=== PATIENT | male | born 1995 | race Caucasian/White ===

== ENCOUNTER 2022-08-16 08:49 | Day surgery (SDC) | payer OTHER, SELFPAY ==
[2022-08-16] VITALS (11 sets, daily range): BP systolic 100–166; BP diastolic 57–115; PULSE 56–93; RESP 16–24; TEMP 36.4–37; O2SAT 77–100; BMI 29.7
--- NOTE | 2022-08-16 09:04 | ED.GENADUL_ITS ---
Discharge Plan Disposition Patient Disposition: Admit to [facility] Condition: Stable Discharge Details Clinical Impression: Acute appendicitis Attending Provider: Cedrick Munguia Primary Care Provider: None,None ED Provider: Dee Rivers Discharge Data Discharge Date/Time-TO BE ENTERED AT DEPARTURE: 08/16/22 14:47 Medical Decision Making 27-year-old male presents to the ER with chief complaint of right lower quadrant abdominal pain which began yesterday. Associate with nausea vomiting. Work-up ordered including CT abdomen pelvis, I did offer her pain medication which patient declined at this time. A liter of normal saline and Zofran ordered. Differential diagnosis includes but not limited to gastroenteritis, UTI, kidney stone, appendicitis, small bowel obstruction. Patient was ill in CT and had episode of vomiting. An additional 4 mg of Zofran ordered. CBC shows white blood cell count of 10.82, absolute neutrophil 7.95 sodium 135 potassium 3.8, BUN/creatinine within normal limits, alk phos 144 lipase 14 which is low. 1030: Spoke with Dr. Trevino radiologist to reports appendicitis on the CT findings. Discussed this with patient who verbalized understanding. Patient has been n.p.o. since yesterday. Surgery paged. 1120: Spoke with Dr. Rodriguez who is on-call for general surgery regarding patient case and details he verbalized understanding. 1133: Dr. Munguia at for Patient eval. Patient to be transferred to the OR. Dr. Munguia is requesting Zosyn and heparin 5000 units subcu which was ordered. This text was generated using [employer] dictation system, please disregard any oddities of phrase or misspellings. Medical Records Medical records reviewed: Yes I reviewed the patient's medical records. Lab Data Lab results reviewed: Yes I reviewed the patient's lab results. Labs: Laboratory Tests Range/Units 08/16/22 08/16/22 08/16/22 09:00 09:00 12:10 WBC (4.4-10.8) 10^3/uL 10.82 H RBC (4.36-5.78) 10^6/uL 5.23 Hgb (13.5-17.5) g/dL 16.7 Hct (40.0-50.0) % 46.2 MCV (80-95) fL 88 MCH (27.0-33.0) pg 31.9 MCHC (32.0-36.0) % 36.1 H RDW (11.8-14.1) % 11.9 Plt Count (130-400) 10^3/uL 223 MPV (8.0-11.0) fL 10.1 Immature Gran % 0.3 Neutrophils % 73.5 Lymphocytes % 19.5 Monocytes % 6.1 Eosinophils % 0.4 Basophils % 0.2 Nucleated RBC % (0.0-0.3) % 0.0 Absolute Neutrophils (1.2-6.7) 10^3/uL 7.95 H Absolute Lymphocytes (1.2-3.4) 10^3/uL 2.11 Absolute Monocytes (0.1-0.8) 10^3/uL 0.66 Absolute Eosinophils (0.0-0.7) 10^3/uL 0.04 Absolute Basophils (0.0-0.2) 10^3/uL 0.02 Sodium (136-145) mmol/L 135 L Potassium (3.5-5.1) mmol/L 3.8 Chloride (98-107) mmol/L 99 Carbon Dioxide (21.0-32.0) mmol/L 27.6 Anion Gap (3-11) mmol/L 8.4 BUN (7-18) mg/dL 15 Creatinine (0.70-1.30) mg/dL 1.2 Est GFR (CKD-EPI 2020) (mL/min/1.73m2) 83.95 Glucose (74-106) mg/dL 88 Calcium (8.5-10.1) mg/dL 9.2 Magnesium (1.8-2.4) mg/dL 2.2 Total Bilirubin (0.2-1.0) mg/dL 0.7 AST (15-37) U/L 22 ALT (16-63) U/L 35 Alkaline Phosphatase (46-116) U/L 144 H Total Protein (6.4-8.2) g/dL 8.4 H Albumin (3.4-5.0) g/dL 4.3 Lipase (16-77) U/L 14 L COVID-19 Source Nasal/Nares SARS-CoV-2 (PCR) (Negative) Negative HPI General Mode of arrival: ambulatory . Date/Time Provider Initiated Documentation: 08/16/22 08:51 . Limitations to Documentation: no limitations . Information obtained by: patient, RN notes reviewed and old records reviewed . HPI Narrative: 27-year-old male presents to the ER with a chief complaint of right lower quadrant abdominal pain which began yesterday. Associated with nausea vomiting. Denies any fever chills dysuria. Is pinpoint in the right lower quadrant. No history of abdominal surgeries. He is a smoker. Occasional alcohol denies any illicit drugs. No other associated symptoms. He did take ibuprofen this morning. Related Data Home Medications Medication Instructions Recorded Confirmed hydromorphone 2 mg tablet 2 mg PO Q8H PRN post-op pain 2 08/16/22 (Dilaudid) days #9 tabs Previous Rx's Medication Instructions Recorded hydromorphone 2 mg tablet 2 mg PO Q8H PRN post-op pain 2 08/16/22 (Dilaudid) days #9 tabs Allergies Allergy/AdvReac Type Severity Reaction Status Date / Time No Known Allergies Allergy Unverified 08/16/22 08:59 General Stated Complaint: Abd Prob GINA: 3 Review of Systems All systems reviewed & are unremarkable except as noted in HPI and below Gastrointestinal Gastrointestinal: Reports abdominal pain, Reports nausea and Reports vomiting PFSH All Active Problems (Updated 08/16/22 @ 11:24 by Dee Rivers NP) Acute appendicitis (Acute) Social History Smoking/Tobacco Use Status: Current every day Tobacco Type: cigarettes Smoking risk assessment performed?: Yes Alcohol Intake: current Alcohol Intake frequency: a few times a week Drug use: Never Substance use type: does not use Do you feel safe at home: Yes Do you feel safe in your relationship?: Yes Exam Narrative Exam Narrative: Constitutional: Alert and oriented x3. Appears stated age. Normal body habitus. Head: Normocephalic, no trauma. Eyes: Pupils PERRL, Red reflex noted, EOM's intact. Eyelids symmetrical without lesions, discharge, or swelling. ENT: Bilateral TM's WNL, External ear normal to inspection, no mastoid TTP, swelling, or erythema, Nasal turbinates WNL, no nasal discharge. Normal dentition, Posterior pharynx WNL, no exudate. Chest: RRR, Normal S1, S2, distal pulses intact. Resp: Lungs clear to auscultation bilaterally, no wheezes, rales, or rhonchi. Abdomen: Soft, non-distended, Normoactive bowel sounds all 4 quads. Right lower quadrant abdominal pain with palpation. Musculoskeletal: Normal gait, 5/5 strength to all four extremities. Skin: No suspicious rashes or lesions. Capillary refill less than 2 sec. Neurologic: Cranial nerves II-XII intact. Alert and oriented x 3. Motor: No deficits noted. Sensory: Intact bilaterally all 4 extremities. Hematologic/Lymphatic: No ecchymosis, no lymphadenopathy. Course Vital Signs Vital signs: Vital Signs Pulse 93 H 08/16/22 08:56 Blood Pressure 119/84 08/16/22 08:56 Pulse Oximetry 97 08/16/22 08:56 Pulse 93 H 08/16/22 08:56 Respiratory Effort Normal, Non-Labored 08/16/22 08:58 Blood Pressure 119/84 08/16/22 08:56 Blood Pressure Position Sitting 08/16/22 08:56 Pulse Oximetry 97 08/16/22 08:56 Oxygen Delivery Method Room Air 08/16/22 08:56 Oxygen Flow Rate 0 08/16/22 08:56 PAWSS Have you Been Recently Intoxicated or Drunk Within the Last 30 days?: No Have you Ever Experienced Previous Episodes of Alcohol Withdrawal?: No Have you ever Experienced Withdrawal Seizures?: No Have you ever Experienced Delirium Tremens(DT)s?: No Have you ever undergone Alcohol Rehabilitation Treatment (i.e, inpt ot outpatient treatment programs)?: No Have you ever Experienced Blackouts?: No Have you ever Combined Alcohol with other Downers within the last 90 days?: No Have you ever Combined Alcohol with any other Substance of Abuse during the last 90 days?: No Positive Blood Alcohol level on Presentation? [PCS.BAL]: No Evidence of Increased Autonomic Activity (i.e. HR>120, tremor, sweating, agitation, nausea)?: No Result: 0
--- NOTE | 2022-08-16 09:09 | DI.CT_ITS ---
Exam(s) CT ABDOMEN PELVIS W EXAM: CT ABDOMEN PELVIS W CLINICAL HISTORY: RLQ abd Pain. TECHNIQUE: Imaging Protocol: Axial computed tomography images with coronal and sagittal reformatted images were created and reviewed CONTRAST MATERIAL: Intravenous: Omnipaque 350 Contrast volume:123 ml Oral: no COMPARISON: No exams were available for comparison FINDINGS: Exam limited by the patient motion. Scan repeated. ABDOMEN: Lung Bases: Normal where visualized. Liver: Normal density. No measurable mass. Gallbladder and biliary tract: No radiodense calculus or dilation. Pancreas: Normal density, no abnormal calcifications or inflammatory process. Spleen: Normal. Kidneys: Normal size, contour and axis. No radiodense stones or obstructive uropathy. No suspicious m asses seen. Adrenal glands: No masses seen. Abdominal Aorta: Abdominal portion non-dilated. Soft tissues: Unremarkable. PELVIS: Bladder: No gross wall thickening. No calculi.No focal mass. Bowel: No obstruction. No bowel wall thickening. Appendix dilated, projecting inferior to the appen clarke. Mild surrounding stranding. Adjacent mildly enlarged right lower quadrant lymph nodes. Peritoneal cavity: No ascites, no collection. Bones: Within normal limits for age. Reproductive organs: Within normal limits. Impression: Findings consistent with appendicitis. Findings called to Dee Rivas emergency department provider. RADIATION DOSE DELIVERED: 1,413.58mGy.cm Total DLP DATA REPOSITORY: All CT scans at this facility are submitted to the National Radiology Data Registry (NRDR) Dose Index Registry (DIR) with the [employer] (ACR). RADIATION OPTIMIZATION: All CT scans at this facility use at least one of these dose optimization te chniques: automated exposure control; mA and/or kV adjustment per patient size (includes targeted exa ms where dose is matched to clinical indication); or iterative reconstruction.
[2022-08-16 09:17] LABS: Abs Immature Grans 0.03 10^3/uL (0.0-0.06); Absolute Basophil Count 0.02 10^3/uL (0.0-0.2); Absolute Eosinophil Count 0.04 10^3/uL (0.0-0.7); Absolute Lymphocyte Count 2.11 10^3/uL (1.2-3.4); Absolute Monocyte Count 0.66 10^3/uL (0.1-0.8); Basophils % 0.2; Eosinophils % 0.4; HCT 46.2 % (40.0-50.0); HGB 16.7 g/dL (13.5-17.5); Immature Grans % 0.3; Lymphocytes % 19.5; MCH 31.9 pg (27.0-33.0); MCHC 36.1 % (32.0-36.0); MCV 88 fL (80-95); MPV 10.1 fL (8.0-11.0); Monocytes % 6.1; Neutrophils % 73.5; Platelet Count 223 10^3/uL (130-400); RBC 5.23 10^6/uL (4.36-5.78); RDW 11.9 % (11.8-14.1); RDW-SD 38.8 fL; WBC 10.82 10^3/uL (4.4-10.8)
[2022-08-16 09:22] LABS: Absolute Neutrophil Count 7.95 10^3/uL (1.2-6.7)
[2022-08-16] MEDS: ACETAMINOPHEN 1,000 MG/100 ML BTL 400 MG IVPB (09:31)
[2022-08-16 09:39] LABS: ALT 35 U/L (16-63); AST 22 U/L (15-37); Albumin 4.3 g/dL (3.4-5.0); Alkaline Phosphatase 144 U/L (46-116); Anion Gap 8.4 mmol/L (3-11); BUN 15 mg/dL (7-18); Bilirubin, Total 0.7 mg/dL (0.2-1.0); CO2 27.6 mmol/L (21.0-32.0); CREATININE 1.2 mg/dL (0.70-1.30); Calcium 9.2 mg/dL (8.5-10.1); Chloride 99 mmol/L (98-107); Estimated GFR 83.95 (mL/min/1.73m2); Glucose 88 mg/dL (74-106); Lipase 14 U/L (16-77); Magnesium 2.2 mg/dL (1.8-2.4); Potassium 3.8 mmol/L (3.5-5.1); Sodium 135 mmol/L (136-145); Total Protein 8.4 g/dL (6.4-8.2)
[2022-08-16] MEDS: Ondansetron 4 MG/2 ML VIAL IVP (09:40)
[2022-08-16] MEDS: Normal Saline 1,000 ML 1000 ML IV (09:40)
[2022-08-16] MEDS: Omnipaque 350 MG/ML 500 ML BTL-Imaging package IJ (09:53)
[2022-08-16] MEDS: Normal Saline Flush 10 ML SYR IVP (09:54)
[2022-08-16] MEDS: Normal Saline - Diluent 50 ML VIAL IJ (09:55)
--- NOTE | 2022-08-16 11:19 | W.SURGCON ---
Date of service: 08/16/22 Time of Service: 12:09 Assessment and Plan Assessment and plan (1) Acute appendicitis: Status: Acute Assessment and plan: 27-year-old man with right lower quadrant abdominal pain for about 24 hours that clinically sounds suspicious for acute appendicitis and CT scan findings do show radiographic signs of acute appendicitis. He is hemodynamically stable and in no distress. The differential diagnosis is relatively broad but certainly acute appendicitis is the highest on the list of likelihood but the differential does include other etiologies such as Meckel's diverticulitis, terminal ileitis, viral gastroenteritis causing reactive lymphadenopathy in the mesentery amongst other less?common conditions. I have reviewed his CT scan images myself: There is no free air and no obvious free fluid. There is a little bit of motion artifact but the appendix is readily identifiable in the right lower quadrant and appears thickened and dilated with a little bit of fat stranding around it. There is no fluid collection around it or evidence of a phlegmon to suggest perforation. Overall plan: I recommend proceeding with laparoscopic appendectomy. We did discuss the possible treatment options and while some people favor nonoperative management with antibiotics, it is not my practice to recommend this considering the reality that a percentage of post-appendectomy pathology shows incidental carcinoma as the underlying culprit. Patient has considered the indications, benefits as well as potential complications of laparoscopic appendectomy and wishes to proceed. #IV antibiotics #DVT prophylaxis #Laparoscopic appendectomy #Anticipate discharge home afterwards as long as it is not found to be non- perforated History of Present Illness Narrative: The patient is a healthy 27-year-old man who was in his usual state of health and yesterday developed spontaneous and progressive abdominal discomfort in the lower abdomen beneath his bellybutton and over on the right side. This has slowly progressed and worsened and is constant pain at this point although the pain is just a severe discomfort. He has never had pain like this before. He has not eaten anything unusual or strange and has had no sick contacts recently. 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 He has never had intra-abdominal surgery. He does not have any medical problems. Because the pain was not going away and was slowly worsening he came to the emergency department to be evaluated. A CT scan performed by the ED was read to have findings radiographically consistent with acute appendicitis. At the bedside he continues to state that constant and persistent discomfort is the biggest issue. Its not moving anywhere and staying in the same spot. There is no family history of bleeding or blood clots. PFSH All Active Problems (Updated 08/16/22 @ 11:24 by Dee Rivers NP) Acute appendicitis (Acute) Social History Smoking/Tobacco Use Status: Current every day Tobacco Type: cigarettes Smoking risk assessment performed?: Yes Alcohol Intake: current Alcohol Intake frequency: a few times a week Drug use: Never Substance use type: does not use Do you feel safe at home: Yes Do you feel safe in your relationship?: Yes Exam Narrative Exam Narrative: General: Nontoxic, appears mildly uncomfortable interactive Neuro: Alert and oriented x3 Psych: Appropriate mood and affect, good insight and understanding into his condition Abdomen: Soft, nondistended, there is focal right lower quadrant McBurney?point tenderness. This is tap?tenderness consistent with focal peritonitis. The other 3 quadrants are soft and nontender. Results Last Vital Signs Pulse 93 H 08/16/22 08:56 BP 119/84 08/16/22 08:56 Pulse Ox 97 08/16/22 08:56 Labs 08/16/22 09:00 08/16/22 09:00 Labs: Laboratory Results - last 24 hr 08/16/22 08/16/22 09:00 09:00 WBC 10.82 H RBC 5.23 Hgb 16.7 Hct 46.2 MCV 88 MCH 31.9 MCHC 36.1 H RDW 11.9 Plt Count 223 MPV 10.1 Immature Gran % 0.3 Neutrophils % 73.5 Lymphocytes % 19.5 Monocytes % 6.1 Eosinophils % 0.4 Basophils % 0.2 Nucleated RBC % 0.0 Absolute Neutrophils 7.95 H Absolute Lymphocytes 2.11 Absolute Monocytes 0.66 Absolute Eosinophils 0.04 Absolute Basophils 0.02 Sodium 135 L Potassium 3.8 Chloride 99 Carbon Dioxide 27.6 Anion Gap 8.4 BUN 15 Creatinine 1.2 Est GFR (CKD-EPI 2020) 83.95 Glucose 88 Calcium 9.2 Magnesium 2.2 Total Bilirubin 0.7 AST 22 ALT 35 Alkaline Phosphatase 144 H Total Protein 8.4 H Albumin 4.3 Lipase 14 L
--- NOTE | 2022-08-16 11:49 | W.ANESPRE ---
General Info Date of Service Date Performed: 08/16/22 Height: 5 ft 7 in Weight: 86.183 kg Body Mass Index (BMI): 29.7 Surgical Procedure: Operation Date: 08/16/22 13:25 Proposed Procedure Side Surgeon p Appendectomy Laparoscopic Cedrick Munguia MD Meds Allergies and Home Medications Allergies Allergy/AdvReac Type Severity Reaction Status Date / Time No Known Allergies Allergy Unverified 08/16/22 08:59 Home Medication Medication Instructions Recorded Unknown [No Known Home Meds] 08/16/22 Current Visit Medications: Current Medications Generic Name Dose Route Start Last Admin Trade Name Freq PRN Reason Stop Dose Admin Sodium Chloride 500 mls @ 0 mls/hr 08/16/22 09:04 Saline 500ml Bag IV PRN PRN As Directed Piperacillin Sod/Tazobactam 100 mls @ 200 mls/hr 08/16/22 11:35 Sod 4.5 gm/ Sodium Chloride IVPB 08/16/22 12:04 NOW ONE Protocol IV Miscellaneous Supplies 1 each 08/16/22 09:15 Iv Access IV DIRECTED RENÉE Iohexol 500 ml 08/16/22 10:00 08/16/22 09:53 Omnipaque 350 Mg/Ml 500 Ml Btl-Imaging Package IJ 09/15/22 23:59 123 ml DIRECTED RENÉE Administration Sodium Chloride 0 ml 08/16/22 09:04 08/16/22 09:54 Normal Saline Flush 10 Ml Syr IVP 10 ml PRN PRN Administration Sodium Chloride 50 ml 08/16/22 10:00 08/16/22 09:55 Normal Saline - Diluent 50 Ml Vial IJ 50 ml .FOR DI USE RENÉE Administration [facility] Active Problems Active Problems: Problem Status Onset Code Acute appendicitis K35.80 Tobacco Smoking/Tobacco Use Status: Current every day Tobacco Type: cigarettes Alcohol Alcohol Intake: current Alcohol intake frequency: a few times a week Substance Use Substance use: Never Substance use type: does not use Vital Signs and Lab Results Vital Signs Most Recent Vital Signs in EMR: Most Recent Vital Signs Pulse BP Pulse Ox 93 H 119/84 97 08/16/22 08:56 08/16/22 08:56 08/16/22 08:56 Lab Results 08/16/22 09:00 08/16/22 09:00 Blood Type / Crossmatch: No Data to Display Complete Blood Count: White Blood Count 10.82 10^3/uL (4.4-10.8) H 08/16/22 09:00 Red Blood Count 5.23 10^6/uL (4.36-5.78) 08/16/22 09:00 Hemoglobin 16.7 g/dL (13.5-17.5) 08/16/22 09:00 Hematocrit 46.2 % (40.0-50.0) 08/16/22 09:00 Platelet Count 223 10^3/uL (130-400) 08/16/22 09:00 Complete Metabolic Panel: Sodium 135 mmol/L (136-145) L 08/16/22 09:00 Potassium 3.8 mmol/L (3.5-5.1) 08/16/22 09:00 Chloride 99 mmol/L (98-107) 08/16/22 09:00 Carbon Dioxide 27.6 mmol/L (21.0-32.0) 08/16/22 09:00 BUN 15 mg/dL (7-18) 08/16/22 09:00 Creatinine 1.2 mg/dL (0.70-1.30) 08/16/22 09:00 Est GFR (CKD-EPI 2020) 83.95 (mL/min/1.73m2) 08/16/22 09:00 Magnesium 2.2 mg/dL (1.8-2.4) 08/16/22 09:00 Calcium 9.2 mg/dL (8.5-10.1) 08/16/22 09:00 Albumin 4.3 g/dL (3.4-5.0) 08/16/22 09:00 Glucose 88 mg/dL (74-106) 08/16/22 09:00 Liver Function Panel: Alanine Aminotransferase (ALT/SGPT) 35 U/L (16-63) 08/16/22 09:00 Aspartate Amino Transf (AST/SGOT) 22 U/L (15-37) 08/16/22 09:00 Coagulation Panel: No Data to Display Cardiac Panel: No Data to Display Arterial Blood Gas: No Data to Display Venous Blood Gas: No Data to Display Pancreas Panel: Lipase 14 U/L (16-77) L 08/16/22 09:00 Thyroid Panel: No Data to Display Infectious Disease: Coronavirus (COVID-19)(PCR) Pending 08/16/22 12:10 Coronavirus 2019 Source Nasal/Nares 08/16/22 12:10 Blood Cultures: No Data to Display Toxicology Panel: No Data to Display Anesthesia Assessment and Plan Anesthesia History Personal History: No History of Anesthesia Complications Family History: No Family History of Anesthesia Complications Exercise Tolerance Exercise Tolerance: Metabolic Equivalents>4 Pertinent Negatives Pertinent Negatives: No Major Cardiovascular Symptoms or Complaints, No Major Pulmonary Symptoms or Complaints and No History of CVA/TIA Cardiac & Pulmonary Exam Cardiac Exam: Normal S1/S2 Heart Sounds Pulmonary Exam: Clear Bilateral Breath Sounds Implantable Cardiac Device Does patient have a Pacemaker or an ICD?: No Airway Exam Known Difficult Airway: No Mallampati Class: 1 Mouth Opening: Normal (> 3cm) Thyromental Distance: Greater than 3 cm Facial Hair: Full [place] Neck Range of Motion: Full ROM Neck Circumference: Normal Teeth Condition: Normal Dentition ASA Classification ASA Score: ASA 2 Emergency Case?: Yes NPO Status NPO Status: NPO Clears >2 hours, Solids >8 hours Anesthesia Plan Resuscitation Status: Full Code Anesthesia Technique: General Anesthesia Airway Planned: Endotracheal Tube Monitors Used: Standard Monitors
[2022-08-16] MEDS: PIPERACILLIN/TAZO 4.5 GM in Normal Saline 100 ML IVPB (11:53)
[2022-08-16] MEDS: Heparin 5,000 UNITS/ML VIAL 5000 UNITS SC (11:53)
[2022-08-16] MEDS: Metoclopramide 10 MG/2 ML VIAL (12:00)
--- NOTE | 2022-08-16 12:00 | NUR.NOTE ---
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
[2022-08-16 12:12] LABS: Source Nasal/Nares
[2022-08-16] MEDS: Lactated Ringers 1,000 ML 1000 ML IV (12:40)
--- NOTE | 2022-08-16 13:15 | APP_PTH ---
PATIENT: Jose L Looney LOC: [facility] U#:[id number] AGE/SX: 27/M ROOM: RE08/16/[address]: Cedrick Munguia : 1995 BED: DIS: 08/16/2022 SPEC #: [id number] RECD: 08/16/22 17:41 STATUS: KUNAL REQ #: [id number] NICOLÁS: 08/16/22 13:[address]: Cedrick Munguia DEPT: Surgical Specimen RECD BY: Soraya Rodríguez ENTERED: 08/16/22 17:41 SP TYPE: Appendix OTHR DR: None Tissues: 1 - APPENDIX NOT INCIDENTAL Procedures: GROSS AND MICRO LEVEL 3 Comments: [id number]
[2022-08-16] MEDS: Bupivacaine 0.25% Pres-Free 30 ML VIAL (13:20)
[2022-08-16 13:26] LABS: COVID-19 PCR Negative (Negative)
--- NOTE | 2022-08-16 13:34 | ROE_ITS ---
Date of service: 08/16/22 Time of Service: 13:35 Operative Note Operative Note Refer to Anesthesia Record Procedure Description: Procedures performed: 1. Laparoscopic appendectomy ?Preoperative diagnosis: Acute appendicitis ?Postop diagnosis: Acute appendicitis ?Surgeon: Mckinley Munguia Aluminum Molding Machine Operator: None ?Anesthesia: General ?Anesthesia provider: Mireya ?Indication for procedure: 27 yo man with acute onset RLQ pain and CT findings consistent with acute, non-perforated appendicitis. ?Findings:? An acutely inflamed appendix was encountered.? No purulence or abscess and no wide-spread contamination. ?Estimated blood loss: Scant/Minimal ?Complications: No complications ?Drains: None ?Procedure details: The patient gave written consent, was in agreement with the risks, indications and benefits of the procedure and was taken to the operating room and laid supine with arms outstretched.? Anesthesia was administered which was tolerated very well.? We tucked the left arm.? Antibiotics and DVT prophylaxis had been given.? We performed a timeout and when we were all in agreement I began the case. We prepped and draped the abdomen in sterile fashion.? I used a Veress needle at Potter's point and insufflated without any difficulty.? A 5 mm port was placed thru the umbilicus without any difficulty. I had adequate exposure and visualization of the RLQ with the above-mentioned findings.? I placed two other trocars under direct visualization. There was no evidence of perforation and the distal third of the appendix was inspected and inflamed and firm. There was scant reactive free fluid nearby. Using the Ligasure I divided the mesoappendix.? Next I divided the appendix base with the stapler ensuring a healthy but small cuff of cecum was also taken as part of the staple line? I removed the appendix from the abdominal cavity and passed the specimen off the back table.? I rechecked for hemostasis and it was excellent.? The 12 mm port site was closed through the fascia with 0-Vicryl.? The remaining ports were removed.? Skin was closed with absorbable sutures and dressings were placed. The patient tolerated the procedure well and was extubated and taken to the PACU in HD stable condition.
[2022-08-16] MEDS: fentaNYL 100 MCG/2 ML VIAL IVP ×2 (14:00→14:15)
--- NOTE | 2022-08-16 14:29 | W.ANESPOSTOP ---
Postoperative Evaluation Date, Time and Location Date Performed: 08/16/22 Time Performed: 14:20 Patient Location: PACU Vital Signs Most Recent Imported Vital Signs: Most Recent Vital Signs Temp Pulse Resp BP Pulse Ox 36.6 C 62 16 108/80 100 08/16/22 14:15 08/16/22 14:15 08/16/22 14:15 08/16/22 14:15 08/16/22 14:15 Pain Score Most Recent Pain Score: Most Recent Pain Score Pain Level 4 08/16/22 14:15 Assessment Mental Status: Awake (Alert & Oriented to Patient Baseline) Airway and Respiratory Function: Patent airway with normal (patient baseline) respiratory exam Cardiovascular Function: Hemodynamically Stable Hydration Status: Adequately Hydrated Nausea & Vomiting: No Nausea or Vomiting Pain: Pain is tolerable per patient Peripheral Nerve Block: Patient did not receive a nerve block
[2022-08-16] MEDS: HYDROmorphone 2 MG TAB PO (15:24)
== END 2022-08-16 15:37 | disposition home or self-care (01) ==
LOC: ER 11:28 → DSU 12:40
PROVIDERS: Emergency Provider Registered Nurse Emergency; Visit Provider Student in an Organized Health Care Education/Training Program
PROC: 0DTJ4ZZ Resection of Appendix, Percutaneous Endoscopic Approach (ICD-10-PCS; CPT 44970; principal; 2022-08-16 13:15)
DX: K35.80 Unspecified acute appendicitis (principal); Z20.822 Contact with and (suspected) exposure to COVID-19
CPT/HCPCS: 44970; 36415; 80053; 83690; 87635; 96361; 96365; 96366; 96375; 99285; 74177; 83735; 85025; 88304; 99284; J0131; J1100; J1644; J1885; J2405; J2543; J2704; J2765; J3010

== ENCOUNTER 2023-06-19 09:52 | Emergency (ER) | payer OTHER, SELFPAY ==
[2023-06-19 09:56] VITALS: BP 126/93; PULSE 105; RESP 16; TEMP 36.7; O2SAT 98
--- NOTE | 2023-06-19 10:00 | DI.RAD_ITS ---
Exam(s) XR FOOT RT COMPLETE EXAM: XR FOOT RT COMPLETE CLINICAL HISTORY: foot injury. TECHNIQUE: 2D digital imaging was performed of the right foot. Three images were obtained. AP, obl ique and lateral views were obtained. COMPARISON: No exams were available for comparison FINDINGS: BONES: No acute fracture is present. No bony destructive lesion is seen. JOINTS: No dislocation present. SOFT TISSUE: Normal. IMPRESSION: Unremarkable radiographs of the right foot. DATA REPOSITORY: RADIATION DOSE DELIVERED:
--- NOTE | 2023-06-19 10:04 | ED.GENADUL_ITS ---
HPI General Date/Time Provider Initiated Documentation: 06/19/23 10:03 . Limitations to Documentation: no limitations . Information obtained by: patient . HPI Narrative: 28-year-old gentleman without significant past medical history presents for acute onset right foot pain. Onset yesterday. He was walking without shoes when he slipped and smashed his right toes. He reports that his toes curled backwards. He reports pain localized to the third and fourth toe. Worse with walking. Took Motrin prior to arrival. Related Data Home Medications Medication Instructions Recorded Confirmed Unknown [No Known Home Meds] 08/30/22 06/19/23 Allergies Allergy/AdvReac Type Severity Reaction Status Date / Time No Known Allergies Allergy Unverified 08/16/22 08:59 General Stated Complaint: Orthopedic GINA: 4 Exam Narrative Exam Narrative: Review of Systems: All systems reviewed & are unremarkable except as noted in HPI and below Well-developed, no acute distress NACT PERRL, normal conjunctiva RRR Unlabored respiratory effort Nondistended abdomen Right foot with bruising and swelling of the fourth toe, some tenderness of the third toe, no tenderness along the fifth metatarsal, no obvious deformity or open wound. Ankle normal, lower leg normal No rashes or lesions. no focal neurologic deficits Appropriate mood and affect Course Vital Signs Vital signs: Vital Signs Temperature 36.7 C 06/19/23 09:56 Pulse 105 H 06/19/23 09:56 Respiratory Rate 16 06/19/23 09:56 Blood Pressure 126/93 H 06/19/23 09:56 Pulse Oximetry 98 06/19/23 09:56 Temperature 36.7 C 06/19/23 09:56 Pulse 105 H 06/19/23 09:56 Respiratory Rate 16 06/19/23 09:56 Blood Pressure 126/93 H 06/19/23 09:56 Pulse Oximetry 98 06/19/23 09:56 Medical Decision Making Emergent evaluation of right foot pain. Initial differential includes contusion, fracture. Unlikely dislocation. The patient declines any additional pain medication at this time. Will get x-ray to evaluate for bony injury. 1030 x-ray reviewed and independently interpreted by me, no fracture. Yovany tape provided. Patient declines hard soled soled shoe. Treatment guidance provided. Discharged in good condition. Medical Records Medical records reviewed: Yes I reviewed the patient's medical records. Quality:[facility] Health Related Social Needs: No Data to Display PFSH All Active Problems (Updated 06/19/23 @ 10:31 by Felisha Rodriguez MD) Contusion of toe (Acute) Pain in toe (Acute) Acute appendicitis (Acute) Medical History Shoulder pain Insomnia Surgical History S/P laparoscopic appendectomy (~08/16/22) Social History Smoking/Tobacco Use Status: Current every day Tobacco Type: cigarettes Smoking risk assessment performed?: Yes Alcohol Intake: current Alcohol Intake frequency: a few times a week Drug use: Never Substance use type: does not use Current gender identity: male Do you feel safe at home: Yes Do you feel safe in your relationship?: Yes Discharge Plan Disposition Patient Disposition: Home Discharge Details Clinical Impression: Pain in toe, Contusion of toe Primary Care Provider: Unknown,Unknown ED Provider: Felisha Rodriguez Home Meds and New Rx's Prescriptions: No Action No Known Home Meds Discharge Instructions Instructions: Foot Contusion (ED) Additional Instructions: no break on the xray budding taping and wearing hard sole shoe will help with comfort
--- NOTE | 2023-06-19 10:26 | DI.VRAD_ITS ---
PROCEDURE INFORMATION: Exam: XR Right Foot Exam date and time: 06/19/2023 10:12 AM Age: 28 years old Clinical indication: Other: Right fourth toe injury TECHNIQUE: Imaging protocol: Radiologic exam of the right foot. Views: 3 or more views. COMPARISON: No relevant prior studies available. FINDINGS: Bones/joints: No acute fracture or dislocation. Bipartite lateral hallux sesamoid. Joint spaces are maintained. Soft tissues: No significant swelling. IMPRESSION: No radiographic evidence of acute osseous injury. Dictated and Authenticated by: Bernard Rabago MD. Ordering:SAURABH Martin MD
--- NOTE | 2023-06-19 10:33 | NUR.NOTE ---
Nursing Note: Pt refused post op natalie NAVARRO aware.
== END 2023-06-19 10:31 | disposition home or self-care (01) ==
PROVIDERS: Emergency Provider Emergency Medicine
DX: S90.121A Contusion of right lesser toe(s) without damage to nail, initial encounter (principal); F17.210 Nicotine dependence, cigarettes, uncomplicated; W22.8XXA Striking against or struck by other objects, initial encounter; Y93.01 Activity, walking, marching and hiking
CPT/HCPCS: 99283; 73630

== ENCOUNTER 2024-01-26 16:29 | Outpatient (CLI) | payer OTHER, SELFPAY ==
--- NOTE | 2024-01-26 16:15 | DI.RAD_ITS ---
Exam(s) XR LUMBAR SPINE COMPLETE EXAM: XR LUMBAR SPINE COMPLETE CLINICAL HISTORY: L-spine pain, evaluate pathology. TECHNIQUE: 2D digital imaging was performed. COMPARISON: No exams were available for comparison FINDINGS: Five views. No evidence of fracture, listhesis, nor obvious pars defects. No scoliosis. Facet joints appear unr emarkable. Disc spaces exhibit normal height at each level in the lumbar spine. Bone density normal . No osseous lesions. IMPRESSION: No significant osseous findings in the lumbosacral spinal column. DATA REPOSITORY: RADIATION DOSE DELIVERED:
--- NOTE | 2024-01-26 16:15 | DI.RAD_ITS ---
Exam(s) XR THORACIC SPINE COMPLETE EXAM: XR THORACIC SPINE COMPLETE CLINICAL HISTORY: T-spine pain, evaluate pathology. TECHNIQUE: 2D digital imaging was performed. COMPARISON: No exams were available for comparison FINDINGS: 3 views No evidence of fracture, listhesis, nor abnormal widening of the paraspinal lines. Bone density appe ars normal. No osseous lesions. No scoliosis. IMPRESSION: No significant radiographic findings on these views of the thoracic spinal column. DATA REPOSITORY: RADIATION DOSE DELIVERED:
--- NOTE | 2024-01-26 17:48 | DI.VRAD_ITS ---
PROCEDURE INFORMATION: Exam: XR Thoracic Spine Exam date and time: 01/26/2024 5:01 PM Age: 28 years old Clinical indication: Pain in thoracic spine TECHNIQUE: Imaging protocol: Radiologic exam of the thoracic spine. Views: 3 views. COMPARISON: CT ABDOMEN PELVIS W 08/16/2022 10:01 AM FINDINGS: Bones/joints: Normal. No acute fracture. Normal alignment. Soft tissues: Unremarkable. IMPRESSION: No acute findings. Dictated and Authenticated by: Bonnie Pandey MD. Ordering:MICHELLE Fernando MD
--- NOTE | 2024-01-26 17:50 | DI.VRAD_ITS ---
PROCEDURE INFORMATION: Exam: XR Lumbosacral Spine Exam date and time: 01/26/2024 5:02 PM Age: 28 years old Clinical indication: Low back pain TECHNIQUE: Imaging protocol: Radiologic exam of the lumbosacral spine. Views: 4 or 5 views. COMPARISON: CT ABDOMEN PELVIS W 08/16/2022 10:01 AM FINDINGS: Bones/joints: Normal. No acute fracture. Normal alignment. Soft tissues: Unremarkable. IMPRESSION: No acute findings. Dictated and Authenticated by: Bonnie Pandey MD. Ordering:MICHELLE Fernando MD
== END 2024-01-26 16:49 ==
PROVIDERS: Visit Provider Nurse Practitioner Family
DX: M54.50 Low back pain, unspecified (principal); M54.6 Pain in thoracic spine
CPT/HCPCS: 72072; 72110

== ENCOUNTER 2025-03-12 13:00 | Emergency (ER) | payer SELFPAY ==
[2025-03-12 13:02] VITALS: BP 137/90; PULSE 70; RESP 18; TEMP 36.6; O2SAT 98
--- NOTE | 2025-03-12 13:02 | ED.GENADUL_ITS ---
Discharge Plan Disposition Patient Disposition: Home Discharge Details Clinical Impression: Compression fx, lumbar spine Primary Care Provider: Unknown,Unknown ED Provider: Giuliano Wang Home Meds and New Rx's Prescriptions: New lidocaine [Lidoderm] 5 % adhesive patch,medicated 1 patch topical DAILY Qty: 15 0RF Rx Instructions: leave on most painful area for up to 12 hrs Discharge Instructions Additional Instructions: You were seen in the emergency department for your back pain. You were found to have an L4 lumbar spinal fracture. These are managed conservatively and generally do not require surgeries. Neurosurgery at [facility] has reviewed your films. They will help to arrange follow-up in 4 weeks. Please do not lift anything greater than 10 pounds. Please do not bend or twist. For your pain please take medications as follows: 1. Take acetaminophen (Tylenol), 1,000 mg (two 500 mg tabs) every 6 hours [2. Take ibuprofen (Advil), 400 mg every 6 hours.] You are also receiving several doses of stronger medications you should take as directed. Please not drink alcohol or drive after taking the stronger opiates. As we discussed please return to the emergency department if you develop any numbness or tingling between your legs, if you lose control of your bowel or bladder or if you have any other concern. Stand Alone Forms: Work Release HPI General Date/Time Provider Initiated Documentation: 03/12/25 13:02 . HPI Narrative: MDM Primary survey intact. Reassuring shock index. On secondary survey patient has paraspinal lower thoracic and lumbar tenderness. Given fall will obtain CT of thoracic and lumbar spine despite no midline tenderness at the moment. Equal breath sounds and no trauma to chest without pneumothorax. No head strike to suggest increased risk for intracranial hemorrhage. No foot tenderness to suggest calcaneal fracture. Patient has been ambulatory so doubt hip fracture. Bilateral lower extremities nontender. No saddle anesthesia nor any loss of bowel or bladder control to suggest spinal cord injury. In the absence of nausea, vomiting, and abdominal pain I am not suspicious for any intra-abdominal injury. Given no head strike my suspicion for intracranial hemorrhage is low so do not feel patient requires CT head. No midline cervical spinal tenderness to suggest benefit from 3:36 PM I spoke to Ronn Foster from [facility] at [facility]. He will help arrange outpt fu in 4 weeks. He advised we could offer the patient a brace as needed but this is not required. We discussed that patient should not lift anything greater than 10 pounds and he should not bend or twist until he is seen by neurosurgery in follow-up. I provided the patient with a work note. I advised scheduled ibuprofen and acetaminophen. I prescribed Lidoderm patches. I gave the patient a short course of to go oral morphine tablets. We discussed not drinking driving or operating any equipment after taking opiates. HPI This is a patient presenting with back pain following a fall. The patient experienced a fall from an 8-foot height while attempting to push a pipe over the roof, resulting in a loss of balance. The pain is located on the sides of his back and is described as stiffness. He reports no chest pain or neck discomfort prior to the incident. He also reports no pain in the middle of his back or along the spine. He is not experiencing any numbness or tingling sensations in his legs, although he has a history of a herniated disc that previously caused numbness in his buttocks, leg, and feet. Currently, he has regained sensation in his feet and reports no loss of bowel or bladder control. He also reports no unusual tingling between his legs. His mobility remains unaffected, with no reported leg pain and the ability to walk without difficulty. He did not lose consciousness during the fall and does not believe his head made contact with the ground. Exam General: Well-appearing in no acute distress speaking in complete sentences. Head: Normocephalic, atraumatic. Eye: Extraocular eye movements intact. No conjunctival injection. No scleral icterus. Ear, nose, mouth, throat: Grossly normal inspection. Normal voice, handling secretions normally. Neck: Trachea midline. No midline cervical spinal tenderness. Cardiovascular: Well-perfused distal extremities. Respiratory: Nonlabored respiration. Clear lungs bilaterally. Gastrointestinal: Nondistended abdomen. Musculoskeletal: No edema. Moving all 4 extremities spontaneously. Nontender bilateral upper lower extremities. Lower extremities: Sensation motor function intact bilateral lower extremities. Patient can fully flex and extend the legs. 5 out of 5 dorsi and plantarflexion strength bilaterally. Skin: Normal for age and race, grossly normal temperature and turgor. No acute rash. Neurologic: Alert and appropriate, no apparent acute deficits. GCS 15. Related Data Home Medications ?Medication ?Instructions ?Recorded ?Confirmed lidocaine 5 % topical patch 1 patch topical DAILY #15 ea 10/21/25 (Lidoderm) Previous Rx's ?Medication ?Instructions ?Recorded lidocaine 5 % topical patch 1 patch topical DAILY #15 ea 03/12/25 (Lidoderm) Allergies Allergy/AdvReac Type Severity Reaction Status Date / Time prednisone Allergy Other (See Verified 03/12/25 13:04 Comment) General GINA: 4 PFSH All Active Problems (Updated 03/12/25 @ 15:39 by Giuliano Wang MD) Compression fx, lumbar spine (Acute) Acute appendicitis (Acute) Medical History Shoulder pain Insomnia Surgical History S/P laparoscopic appendectomy (~08/16/22) Social History Smoking/Tobacco Use Status: Current every day Tobacco Type: cigarettes Smoking risk assessment performed?: Yes Alcohol Intake: never Drug use: Never Substance use type: does not use Current gender identity: male Do you feel safe at home: Yes Do you feel safe in your relationship?: Yes
--- NOTE | 2025-03-12 13:15 | DI.CT_ITS ---
Exam(s) CT THORACIC LUMBAR SPINE WO EXAM: CT THORACIC LUMBAR SPINE WO CLINICAL HISTORY: Back pain fall. TECHNIQUE: Imaging Protocol: Axial, coronal and sagittal images were reconstructed utilizing bone and soft tissue algorithm. COMPARISON: CR,XR XR THORACIC SPINE COMPLETE from 01/26/2024 CR,XR XR LUMBAR SPINE COMPLETE from 01/26/2024 FINDINGS: Thoracic spine: Bones: No acute fractures are seen. The alignment of the spine is normal including the cervicothoracic junction. Soft tissues: The soft tissues of the chest are unremarkable. No large disk herniations are identified. Lumbar spine: Bones: There is a fracture at the anterior superior endplate of L4 which is minimally depressed. There is also minimal displacement. There is no involvement of the posterior aspect of the vertebral body or posterior elements. No additional fractures are present. Degenerative disc changes and facet degenerative changes are present. Alignment: Normal. Soft tissues: There is no large disc herniation. No paraspinal hematoma. IMPRESSION: No acute abnormality of the thoracic spine. Mild fracture of the anterior superior endplate of L4. Findings called to the ER provider RADIATION DOSE DELIVERED: Total DLP DATA REPOSITORY: All CT scans at this facility are submitted to the National Radiology Data Registry (NRDR) Dose Index Registry (DIR) with the [employer] (ACR). RADIATION OPTIMIZATION: All CT scans at this facility use at least one of these dose optimization techniques: automated exposure control; mA and/or kV adjustment per patient size (includes targeted exams where dose is matched to clinical indication); or iterative reconstruction.
[2025-03-12] MEDS: Acetaminophen 500 MG TAB 1000 MG PO (13:30)
[2025-03-12] MEDS: Lidocaine 5% Patch 1 PATCH TP (13:31)
[2025-03-12] MEDS: Ibuprofen 600 MG TAB PO (13:31)
--- NOTE | 2025-03-12 14:40 | DI.RAD_ITS ---
Exam(s) XR LUMBAR SPINE AP, LAT EXAM: XR LUMBAR SPINE AP, LAT CLINICAL HISTORY: Lumbar spine fracture. TECHNIQUE: 2D digital imaging was performed. Three views. COMPARISON: CT CT THORACIC LUMBAR SPINE WO from 03/12/2025 FINDINGS: BONES: There is a nondisplaced and minimally depressed fracture of the left anterior superior endplate of L4 which is partially obscured by bowel gas. No additional fractures are identified. Vertebral body heights are maintained. No facet hypertrophy identified . DISKS: Intervertebral disc spaces are maintained. ALIGNMENT: Lumbar spinal alignment is within normal limits. SOFT TISSUE: Normal. IMPRESSION: Mild fracture of the anterior superior endplate of L4 as seen on prior CT. DATA REPOSITORY: RADIATION DOSE DELIVERED:
[2025-03-12 15:50] VITALS: BP 126/94; PULSE 66; TEMP 37.4; O2SAT 97
[2025-03-12] MEDS: MORPHine IR 15 MG TAB, 4 TABS/BTL PO (16:08)
== END 2025-03-12 16:18 | disposition home or self-care (01) ==
PROVIDERS: Emergency Provider Emergency Medicine
DX: S32.040A Wedge compression fracture of fourth lumbar vertebra, initial encounter for closed fracture (principal); W19.XXXA Unspecified fall, initial encounter
CPT/HCPCS: 99283; 99284; 72100; 72128; 72131

== ENCOUNTER 2025-03-15 05:43 | Emergency (ER) | payer SELFPAY ==
[2025-03-15] VITALS (10 sets, daily range): BP systolic 105–128; BP diastolic 58–101; PULSE 48–96; RESP 16–20; TEMP 36.4–37.1; O2SAT 97–99
--- NOTE | 2025-03-15 06:33 | ED.GENADUL_ITS ---
Discharge Plan Discharge Details Chief Complaint: Nk/Back Pain Clinical Impression: Closed lumbar vertebral fracture, Back pain Primary Care Provider: Unknown,Unknown ED Provider: Aye Sheehan Home Meds and New Rx's Prescriptions: No Action lidocaine [Lidoderm] 5 % adhesive patch,medicated 1 patch topical DAILY Qty: 15 0RF Rx Instructions: leave on most painful area for up to 12 hrs HPI General Mode of arrival: ambulatory . Date/Time Provider Initiated Documentation: 03/15/25 05:45 . Limitations to Documentation: no limitations . Information obtained by: patient and old records reviewed . HPI Narrative: 30yo M with fall with lumbar fracture on 03/12/25 presenting for worsening back pain. [facility] records reviewed and show anterior superior L4 endplate fracture with minimal displacement. Pain was initially adequately controlled wtih tylenol/ibuprofen/oral morphine at home, however yesterday evening and this morning has been much worse. 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 No numbness, tingling, weakness, bowel/bladder incontinence or difficutlies. Not able to see his PCP for another 3-5 days. He is otherwise in his usual state of health. Related Data Home Medications ?Medication ?Instructions ?Recorded ?Confirmed lidocaine 5 % topical patch 1 patch topical DAILY #15 ea 03/12/25 (Lidoderm) Previous Rx's ?Medication ?Instructions ?Recorded lidocaine 5 % topical patch 1 patch topical DAILY #15 ea 03/12/25 (Lidoderm) Allergies Allergy/AdvReac Type Severity Reaction Status Date / Time prednisone Allergy Other (See Verified 03/15/25 06:30 Comment) General Stated Complaint: Nk/Back Pain GINA: 3 Review of Systems Narrative: see HPI Exam Narrative Exam Narrative: General: Alert, well appearing, well nourished, appears to be in pain Head: Normocephalic, atraumatic Neck: Trachea midline, ?Neck supple. Cardiac: ?RRR Resp: No respiratory distress. Speaking in full sentences. Abd: ?Non-distended Back: Midline tenderness low lumbar spine. No paraspinal tenderness or spasm. Extremities: ?No deformities.? No peripheral edema. Neuro: ? GCS 15.? PERRL.? EOMI.? Fluent speech, no dysarthria. Motor- 5/5 strength symmetric bilateral lower extremities Sensation- ?Intact to light touch and symmetric multiple dermatomes bilateral lower extremities. No saddle anesthesia. Reflexes- 2/4 achilles & patellar, no clonus Gait/station: ?No truncal ataxia. Steady gait with equal steps Course Vital Signs Vital signs: Vital Signs Temperature 36.6 C 03/15/25 05:49 Pulse 80 03/15/25 05:49 Respiratory Rate 20 03/15/25 05:49 Temperature 36.6 C 03/15/25 05:49 Temperature Source Oral 03/15/25 05:49 Pulse 80 03/15/25 05:49 Respiratory Rate 20 03/15/25 05:49 Blood Pressure Position Sitting 03/15/25 05:49 Oxygen Delivery Method Room Air 03/15/25 05:49 Oxygen Flow Rate 0 03/15/25 05:49 Pain Level 7 03/15/25 06:22 Medical Decision Making 30yo M with fall with lumbar fracture on 03/12/25 presenting for worsening back pain. [facility] records reviewed and show anterior superior L4 endplate fracture with minimal displacement. Pain was initially adequately controlled wtih tylenol/ibuprofen/oral morphine at home, however yesterday evening and this morning has been much worse despite being complaint with his restrictions. Had tylenol, ibuprofen, and morphine around 0500. Vital signs reassuring on arrival, reassuring neuro exam, no deficits and he has no neuro symptoms to suggest cord injury. Will treat pain here with IM toradol, PO hydromorphone, lidocaine patch. Given worsening pain, will get repeat CT to evaluate. Will be signed out to oncoming physcian, plan to follouwp imaging and reassess. Disposition pending results and clincial course. PFSH All Active Problems (Updated 03/15/25 @ 06:42 by Aye Sheehan MD) Back pain (Acute) Closed lumbar vertebral fracture (Acute) Compression fx, lumbar spine (Acute) Acute appendicitis (Acute) Medical History Shoulder pain Insomnia Surgical History S/P laparoscopic appendectomy (~08/16/22) Social History Smoking/Tobacco Use Status: Current every day Tobacco Type: cigarettes Smoking risk assessment performed?: Yes Alcohol Intake: never Drug use: Never Substance use type: does not use Current gender identity: male Do you feel safe at home: Yes Do you feel safe in your relationship?: Yes
[2025-03-15] MEDS: HYDROmorphone 2 MG TAB PO (06:35)
[2025-03-15] MEDS: Ketorolac 15 MG/ML VIAL IVP (06:51)
[2025-03-15] MEDS: Lidocaine 5% Patch 1 PATCH TP (07:00)
--- NOTE | 2025-03-15 07:09 | DI.CT_ITS ---
Exam(s) CT LUMBAR SPINE WO EXAM: CT LUMBAR SPINE WO CLINICAL HISTORY: worsening pain s/p L4 endplate fx 03/12. TECHNIQUE: Imaging Protocol: Axial computed tomography images with coronal and sagittal reformatted images were created and reviewed COMPARISON: CT CT THORACIC LUMBAR SPINE WO from 03/12/2025 FINDINGS: Bones: The last intervertebral disc space is designated the L5/S1 level for the numbering purpose of this examination. Stable mildly displaced fracture is again noted at the anterosuperior endplate the L4 vertebral body. No new fractures. No gross evidence of disc herniation. The disc spaces are maintained. Alignment is satisfactory. Soft Tissues: The paraspinal soft tissues are unremarkable. IMPRESSION: Stable alignment of the fracture at the anterior superior endplate of L4. No new fractures. The preliminary [facility] report was reviewed. RADIATION DOSE DELIVERED: 601.69mGy.cm Total DLP DATA REPOSITORY: All CT scans at this facility are submitted to the National Radiology Data Registry (NRDR) Dose Index Registry (DIR) with the [employer] (ACR). RADIATION OPTIMIZATION: All CT scans at this facility use at least one of these dose optimization techniques: automated exposure control; mA and/or kV adjustment per patient size (includes targeted exams where dose is matched to clinical indication); or iterative reconstruction.
--- NOTE | 2025-03-15 07:27 | W.EDPROG ---
Date of service: 03/15/25 Time of Service: 07:27 Medical Decision Making I received signout on this 30-year-old male with worsening pain status post lumbar spine fracture earlier this week. He is pending a CT read. 1:40 PM I met with the patient. Reassuring repeat CT scan. I called in hydromorphone prescription to his pharmacy. Patient I discussed return indications including any loss of bowel or bladder control or any saddle anesthesia. I wrote him for a work note. Discharge Plan Disposition Patient Disposition: Home Discharge Details Clinical Impression: Closed lumbar vertebral fracture, Back pain Primary Care Provider: Unknown,Unknown ED Provider: Giuliano Wang Home Meds and New Rx's Prescriptions: New hydromorphone 2 mg tablet 2 mg PO Q6H PRNQty: 7 0RF Continued lidocaine [Lidoderm] 5 % adhesive patch,medicated 1 patch topical DAILY Qty: 15 0RF Rx Instructions: leave on most painful area for up to 12 hrs Discharge Instructions Additional Instructions: You are seen in the emergency department for your back pain. Your CT scan showed no significant changes. As we discussed if you lose control of your bowels or bladder or if you develop any numbness or tingling to your legs please return to the emergency department. A prescription has been sent for additional pain meds. Please do not drive drink alcohol or operate any machinery while taking these additional medications. For your pain please take medications as follows: 1. Take acetaminophen (Tylenol), 1,000 mg (two 500 mg tabs) every 6 hours [2. Take ibuprofen (Advil), 400 mg every 6 hours.] Stand Alone Forms: Work Release Discharge Data Discharge Date/Time-TO BE ENTERED AT DEPARTURE: 03/15/25 10:10
--- NOTE | 2025-03-15 08:58 | DI.VRAD_ITS ---
PROCEDURE INFORMATION: Exam: CT Lumbar Spine Without Contrast Exam date and time: 03/15/2025 6:48 AM Age: 30 years old Clinical indication: Low back pain; Known l4 FX from a fall 3 days ago. Pain worsening TECHNIQUE: Imaging protocol: Computed tomography of the lumbar spine without contrast. Radiation optimization: All CT scans at this facility use at least one of these dose optimization techniques: automated exposure control; mA and/or kV adjustment per patient size (includes targeted exams where dose is matched to clinical indication); or iterative reconstruction. COMPARISON: CT THORACIC LUMBAR SPINE WO 03/12/2025 1:48 PM FINDINGS: Bones/joints: There are 5 non rib-bearing lumbar vertebral segments. Normal alignment. Stable mildly displaced acute fracture of the anterosuperior corner of the L4 superior vertebral endplate. There is no retropulsion of bone towards the spinal canal. Mild narrowing of the L3-L4 intervertebral disc space. Mild disc bulge and L3-L4, without significant central canal stenosis. Disc spaces otherwise well maintained. No neural foraminal narrowing. Soft tissues: Unremarkable. IMPRESSION: Stable mildly displaced acute fracture of the anterosuperior corner of the L4 superior vertebral endplate. Dictated and Authenticated by: Camille Ruelas MD. Orderin Aguila Griffiths MD
== END 2025-03-15 10:10 | disposition home or self-care (01) ==
PROVIDERS: Emergency Provider Emergency Medicine
DX: S32.048A Other fracture of fourth lumbar vertebra, initial encounter for closed fracture (principal); W11.XXXA Fall on and from ladder, initial encounter
CPT/HCPCS: 99283; 99284; 36415; 96374; 00123; 72131; J1885